=== PATIENT | male | born 1965 | race Caucasian/White ===

== ENCOUNTER 2024-04-15 06:11 | Day surgery (SDC) | payer OTHER, BC, SELFPAY ==
[2024-04-15 08:52] VITALS: BMI 44.9
[2024-04-15 08:53] VITALS: BMI 44.9
[2024-04-15 08:54] VITALS: BP 140/102
[2024-04-15 10:43] VITALS: BP 113/80
[2024-04-15 10:45] VITALS: BP 122/82
== END 2024-04-15 11:15 | disposition home or self-care (01) ==
LOC: SDS 06:11
PROVIDERS: ATTENDING PHYSICIAN Internal Medicine Gastroenterology
DX: Z12.11 Encounter for screening for malignant neoplasm of colon (principal); K57.30 Diverticulosis of large intestine without perforation or abscess without bleeding; K64.8 Other hemorrhoids; Z86.010 Personal history of colon polyps
CPT/HCPCS: G0105

== ENCOUNTER → 2024-08-15 18:00 | Outpatient (REF) | payer OTHER, BC, SELFPAY ==
--- NOTE | 2024-08-10 07:29 | PN.DIAED02 ---
Referral
DSME Class Series Code: [id number]
Referred For: Diabetes Self-Management Training, Medical Nutrition Therapy, Self-Blood Glucose Monitoring, Long-Term Complication Instruction, Accute Complication Instruction, Disease Management
PHI Release Authorization Form Signed: Yes
Patient Problems:
Current Active Problems
Problem Status Onset
Type 2 diabetes mellitus without complications ~01/05/23
Demographic
(1) Type 2 diabetes mellitus without complications
Status: Acute Onset Date: ~01/05/23 Code(s): E11.9 - Type 2 diabetes mellitus without complications
Patient's primary language-: Latvian
Education: Vocation/Trade
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
Hours Worked/Week: 20-40
Shift: Day
- Social
Primary Support Person: Self
Primary Care Takers: Self
Living Arrangements: Self & spouse
- Learning Methods
Preferred Method: Hands-on demonstration
Barriers to Learning: None
Glycemic Control
- Blood Glucose Monitoring Assessment
Date: 08/10/24 (116 FBG)
Blood glucose monitoring at home: Yes
Monitor Brands: One[employer] (Provided during office visit)
Time: fasting, after dinner (2 hrs after dinner )
Patient uses Alternate Site Testing: No
Patient instructed on Use and Limitation: No
- Hemoglobin A1c
Date: 07/19/24
A1C Percentage (%): 8.6
Medical History of Diabetes
Family Diabetes History: Unknown
Previous Diabetes Education: No
Previous visit with Dietitian: No
Complications/Comorbidity/Specialist: Gastrointestinal disease, Hypertension, Neuropathy
Measures
- Anthropometrics
Height: 5 ft 11 in
Actual Weight: 149.685 kg
- Blood Pressure / Pulse
Blood pressure: 143/101
Pulse: 83
- Diabetes Management
Medical Management for Diabetes: Complete physical exam (08/02/2024), Dental exam (07/20/2024)
Self-Care
- Tobacco Usage
Do you now, or have you ever smoked?: Never smoked
- Alcohol & Drugs Usage
Drinks Alcohol: Yes
Amount/day: < 1 drink per day
Uses Recreational Drugs: No
- Meals & Dining
Meals & Dining: Patient skips meals: Yes, Food Intolerance / Allergy: No, Cultural / Hindu Dietary Needs: No
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
Primary German Tutor: Self
Dining Out Frequency: 1-3x per week
- Physical Activity
Physical Limitation: No
Patient participates in physical Activity: No
- Patient-Self Assessment
Diabetes Knowledge: Poor
Feelings About Diabetes: Adaptation
General Health: Fair
Importance of Health: Extremely
Stress Level: High
Diabetes Interferes With:: Other
Barriers to Diabetes Management: Nothing
Depression Survey Score: 3
- Diabetes Identification
Carries Diabetes Identification: No
Diabetes Identification Information Provided: No
Care Plan
- Education Needs
Patient Education Needs: Diabetes disease process, Chronic complications, Acute complications, Physical activity, Psychosocial Adjustment, Nutritional management, Goal setting & problem solving
Recommended Diabetes Training Program based on assessment: Outpatient Diabetes Education Program
- Plan of Care
Plan of Care:
Met with Mr. Mackey today for registration and initiation of Diabetes Self-management. Pt was recommended by his PCP due to uncontrolled Diabetes, A1C of 8.6% that was noted on recent blood work. Patient reports that he was started on Metformin 1500mg
daily at dinner time. His PCP is in the process of filling out paper work for prior Auth for Kam. He has started following a meal plan with [email or web address] and has started losing weight.
Provided with [employer] glucometer, reviewed instructions on proper testing technique, testing sites and testing pattern given. Noted for fasting blood sugar of 116 this morning in the office. Rx sent to pt's pharmacy
Pt states that he does not exercise, he was counseled with emphasis on need to adhere to an intensive lifestyle modification that includes healthy eating, exercising and monitoring blood glucose twice a day. We spent a good amount of time discussing
importance of Physical activity. Goals for physical activity were established; Pt will start walking for 30 mins 5 times/week in the evening after dinner.
--- NOTE | 2024-08-10 09:56 | PN.DIAED04 ---
Education Record
- Education Record
Class Attended: Other (Pre-Registration for DSME Classes)
DSME Class Series Code: [id number]
Instructor: Nurse Practitioner (ARGELIA Lemus)
Class Length (mins): 30
Pre-Program Knowledge: No knowledge
Pre-Test Score (%): 15
Goals
- Goal 1
Being Active: Exercise 30 minutes-5 times per week
Goals To Be Evaluated: Exercise 30 mins-5x/week
- Goal 2
Healthy Eating: Make better food choices, Follow meal plan
Goals To Be Evaluated: Make better food choices. Follow meal plan
- Goal 3
Monitoring: Follow monitoring schedule, Monitor more often
Goals To Be Evaluated: Follow monitoring times. Monitor more often
== END ==
LOC: DES 18:00
PROVIDERS: ATTENDING PHYSICIAN Family Medicine
DX: E11.9 Type 2 diabetes mellitus without complications (principal)
CPT/HCPCS: 99078

== ENCOUNTER → 2024-08-22 18:00 | Outpatient (REF) | payer OTHER, BC, SELFPAY | LOC: DES 18:00 | PROVIDERS: ATTENDING PHYSICIAN Family Medicine | DX: E11.9 Type 2 diabetes mellitus without complications (principal) | CPT/HCPCS: 99078 ==

== ENCOUNTER → 2024-08-29 18:00 | Outpatient (REF) | payer OTHER, BC, SELFPAY | LOC: DES 18:00 | PROVIDERS: ATTENDING PHYSICIAN Family Medicine | DX: E11.9 Type 2 diabetes mellitus without complications (principal) | CPT/HCPCS: 99078 ==

== ENCOUNTER → 2024-09-05 08:18 | Outpatient (REF) | payer OTHER, BC, SELFPAY ==
--- NOTE | 2024-09-09 08:37 | PN.DIAED04 ---
Education Record
- Education Record
Class Attended: Class 4
DSME Class Series Code: [id number]
Instructor: Nurse Practitioner (ARGELIA Lemus)
Class Length (mins): 120
Post-Class 4 Test Score (%): 93
== END ==
LOC: DES 08:18
PROVIDERS: ATTENDING PHYSICIAN Family Medicine
DX: E11.9 Type 2 diabetes mellitus without complications (principal)
CPT/HCPCS: 99078

== ENCOUNTER → 2024-09-12 12:53 | Outpatient (REF) | payer OTHER, BC, SELFPAY | LOC: DES 12:53 | PROVIDERS: ATTENDING PHYSICIAN Family Medicine | DX: E11.9 Type 2 diabetes mellitus without complications (principal) | CPT/HCPCS: 99078 ==

== ENCOUNTER → 2025-09-26 16:38 | Outpatient (REF) | payer OTHER, BC, SELFPAY | LOC: RAD 16:38 | PROVIDERS: ATTENDING PHYSICIAN Family Medicine | DX: M25.562 Pain in left knee (principal) | CPT/HCPCS: 73564 ==